=== PATIENT | male | born 1995 | race Caucasian/White ===

== ENCOUNTER 2017-01-11 10:13 | Emergency (ER) | payer OTHER | END 2017-01-11 11:28 | disposition home or self-care (01) | LOC: ER1 10:13 | DX: K05.219 Aggressive periodontitis, localized, unspecified severity (principal); K02.9 Dental caries, unspecified | CPT/HCPCS: 99282 ==

== ENCOUNTER → 2020-05-26 | Outpatient (CLI) | payer BC, OTHER ==
[2020-05-26 17:59] LABS: HEMOGLOBIN 14.3 gm/dl (14.0-17.5); RED BLOOD COUNT 4.74 M/UL (4.20-5.50); WHITE BLOOD COUNT 6.9 K/UL (4.5-11.0)
[2020-05-26 18:19] LABS: BUN/CREATININE RATIO 13 (0-10)
[2020-05-28 08:14] LABS: VITAMIN D, 25-HYDROXY 12.4 ng/mL (30.0-100.0)
[2020-05-28 09:14] LABS: THYROXINE (T4) 5.6 ug/dL (4.5-12.0)
== END ==
LOC: LAB 17:14
PROVIDERS: Nurse Practitioner Family
DX: Z13.220 Encounter for screening for lipoid disorders (principal); M54.5 Low back pain; R53.83 Other fatigue; E55.9 Vitamin D deficiency, unspecified
CPT/HCPCS: 36415; 80053; 80061; 81001; 84436; 84443; 84480; 85025